=== PATIENT | female | born 1990 | race African-American/Black ===

== ENCOUNTER 2017-11-01 20:30 | Emergency (ER) | payer SELFPAY ==
[~2017-11-01] VITALS: Ht 165.1 cm; Wt 68.0 kg
[~2017-11-01 20:30] MED LIST: AMO500 PO; FLU10 PO; METR250 PO; NO ROUTINE MEDS; PAN40 PO; POLY10DR20 OP; TRAM100T22 PO
--- NOTE | 2017-11-01 20:38 | ER Report ---
History and Physical Time Seen By MD: 20:37 HPI/ROS CHIEF COMPLAINT: Fever, body aches HISTORY OF PRESENT ILLNESS: 27-year-old female patient presents to emergency room with complaint of fever and bodyaches. Patient states this been going on for the last 3 days. Patient states she's had a significant sore throat and has not been able to eat due to the pain. She states she is able to drink. She states that she's had no energy and has just been lying in bed. She did take some ibuprofen yesterday. She is not taking any medication for this today. She denies having any nausea, vomiting or diarrhea. Patient denies having any cough. Patient states she normally does have enlarged tonsils but she does believe she has strep throat. Allergies: Coded Allergies: No Known Drug Allergies (Unverified , 11/01/17) Home Meds Reported Medications Polymyxin B Sulfate/Tmp (Polytrim Eye Drops) 10 Ml Drops, 10 ML OP, 0 Refills 09/09/11 [No Routine Meds] No Conflict Check, 0 Refills 09/09/11 Past Medical/Surgical History Patient has a past medical history of ulcer, back pain, alcohol use, depression. Patient denies any surgical history. Patient has a family medical history of depression. Reviewed Nurses Notes: Yes Hx Smoking: Yes (10/05 PPD) Hx Substance Use Disorder: No Hx Alcohol Use: Yes (NOTICED IT THIS LAST YEAR.) Constitutional Vital Sign - Last 24 Hours 11/01/17 20:36 Temp 100.4 Pulse 107 Resp 20 B/P (MAP) 137/92 Pulse Ox 95 O2 Delivery Room Air Physical Exam General appearance: Alert no distress. Patient is warm to the touch. Respiratory: Chest is non tender, lungs are clear to auscultation. Cardiac: Regular rate and rhythm. ENT: Tympanic membranes are pearly-drake, auditory canals are patent, mucous membranes are moist. Patient does have pustules located on both tonsils. DIFFERENTIAL DIAGNOSIS: After history and physical exam differential diagnosis was considered for fever in adults including but not limited to pneumonia, urinary tract infection, viral syndrome, and influenza. Medical Decision Making Data Points Result Diagram: 11/01/172049 Laboratory Hematology Test 11/01/17 20:36 11/01/17 20:50 Monoscreen Negative (NEGATIVE) Influenza Virus Type A (PCR) Negative (NEGATIVE) Influenza Virus Type B (PCR) Negative (NEGATIVE) Group A Streptococcus Screen Positive (NEGATIVE) Red Blood Count 4.63 M/uL (4.17-5.56) Mean Corpuscular Volume 89.5 fL (80.0-96.0) Mean Corpuscular Hemoglobin 31.0 pg (26.0-33.0) Mean Corpuscular Hemoglobin Concent 34.6 g/dL (32.0-36.0) Red Cell Distribution Width 13.9 % (11.5-14.5) Mean Platelet Volume 7.6 fL (7.2-11.1) Neutrophils (%) (Auto) 84.1 % (39.4-72.5) Lymphocytes (%) (Auto) 6.5 % (17.6-49.6) Monocytes (%) (Auto) 8.4 % (4.1-12.4) Eosinophils (%) (Auto) 0.6 % (0.4-6.7) Basophils (%) (Auto) 0.4 % (0.3-1.4) Nucleated RBC Relative Count (auto) 0.0 /100WBC Neutrophils # (Auto) 10.1 K/uL (2.0-7.4) Lymphocytes # (Auto) 0.8 K/uL (1.3-3.6) Monocytes # (Auto) 1.0 K/uL (0.3-1.0) Eosinophils # (Auto) 0.1 K/uL (0.0-0.5) Basophils # (Auto) 0.1 K/uL (0.0-0.1) Nucleated RBC Absolute Count (auto) 0.00 K/uL Chemistry Test 11/01/17 20:36 11/01/17 20:50 Monoscreen Negative (NEGATIVE) Influenza Virus Type A (PCR) Negative (NEGATIVE) Influenza Virus Type B (PCR) Negative (NEGATIVE) Group A Streptococcus Screen Positive (NEGATIVE) White Blood Count 12.0 k/uL (4.5-11.0) Red Blood Count 4.63 M/uL (4.17-5.56) Hemoglobin 14.4 g/dL (12.0-16.0) Hematocrit 41.4 % (34.0-47.0) Mean Corpuscular Volume 89.5 fL (80.0-96.0) Mean Corpuscular Hemoglobin 31.0 pg (26.0-33.0) Mean Corpuscular Hemoglobin Concent 34.6 g/dL (32.0-36.0) Red Cell Distribution Width 13.9 % (11.5-14.5) Platelet Count 204 K/uL (150-450) Mean Platelet Volume 7.6 fL (7.2-11.1) Neutrophils (%) (Auto) 84.1 % (39.4-72.5) Lymphocytes (%) (Auto) 6.5 % (17.6-49.6) Monocytes (%) (Auto) 8.4 % (4.1-12.4) Eosinophils (%) (Auto) 0.6 % (0.4-6.7) Basophils (%) (Auto) 0.4 % (0.3-1.4) Nucleated RBC Relative Count (auto) 0.0 /100WBC Neutrophils # (Auto) 10.1 K/uL (2.0-7.4) Lymphocytes # (Auto) 0.8 K/uL (1.3-3.6) Monocytes # (Auto) 1.0 K/uL (0.3-1.0) Eosinophils # (Auto) 0.1 K/uL (0.0-0.5) Basophils # (Auto) 0.1 K/uL (0.0-0.1) Nucleated RBC Absolute Count (auto) 0.00 K/uL ED Course/Re-evaluation ED Course Patient was admitted to exam room, history and physical were obtained. Differential diagnoses were considered. On examination patient does have pustules enlarged tonsils. Patient is feverish, she also has elevated heart rate. A CBC, Monospot, strep screen, influenza screen were done. Patient was positive for strep. She'll white count of 12,000 with a left shift which is consistent with her strep throat. We will go ahead and treat her with amoxicillin. We will give her a dose for tonight, dose for tomorrow and discharge patient home with a prescription. She is to follow-up with her primary care provider in the next week. Patient verbalized understanding and agreement. Decision to Disposition Date: Nov 01, 2017 Decision to Disposition Time: 21:28 Depart Departure Latest Vital Signs Vital Signs Date Time Temp Pulse Resp B/P (MAP) Pulse Ox O2 Delivery O2 Flow Rate FiO2 11/01/17 20:36 100.4 107 20 137/92 95 Room Air Impression: Primary Impression: Strep pharyngitis Condition: Improved Disposition: HOME OR SELF-CARE New Scripts Amoxicillin 500 Mg Tab (AMOXICILLIN 500 MG TAB) 500 Mg Tablet 1 TAB PO TID, #28 TAB Prov: CORIN FLORES 11/01/17 Patient Instructions: Strep Throat (ED) Additional Instructions: Increase fluid intake. Get plenty of rest. Follow up with your primary care provider in the next week. Take the medications as prescribed. Take Tylenol or Ibuprofen as needed for fevers or pain. Return to the ER if condition worsens. CORIN FLORES Nov 01, 2017 20:38
[2017-11-01 21:06] LABS: PLATELET COUNT, AUTOMATED 204 K/uL (150-450)
[2017-11-01] MEDS ORDERED: AMOX500T10 PO (21:27)
[2017-11-01] MEDS ORDERED: AMOXICILLIN 500 MG CAP PO ONE (21:30)
[2017-11-01 21:37] VITALS: BP 114/84
== END 2017-11-01 21:38 | disposition home or self-care (01) ==
LOC: ER 21:12
DX: J02.0 Streptococcal pharyngitis (principal)
CPT/HCPCS: 85025; 86308; 87081; 87502; 87880; 99282